=== PATIENT | female | born 1985 | race Caucasian/White ===

== ENCOUNTER 2022-05-19 09:07 | Outpatient (REF) | payer BC, OTHER, SELFPAY ==
[2022-05-19 11:24] LABS: HCG Quantitative < 2 mIU/mL; TSH reflex Free T4 1.07 uIU/mL (0.32-4.0)
[2022-05-19 18:07] LABS: CT PCR NOT DETECTED (Not Detect.); NG PCR NOT DETECTED (Not Detect.)
== END 2022-05-19 09:08 | disposition home or self-care (01) ==
LOC: HO.LAB 09:07
PROVIDERS: Visit Provider Obstetrics & Gynecology
DX: Z11.3 Encounter for screening for infections with a predominantly sexual mode of transmission (principal); N93.9 Abnormal uterine and vaginal bleeding, unspecified
CPT/HCPCS: 84443; 84702; 87491; 87591

== ENCOUNTER 2022-07-26 15:18 | Outpatient (REF) | payer BC, OTHER, SELFPAY ==
--- NOTE | ~2022-07-26 | US_ITS ---
EXAMINATION: US PELVIS CLINICAL INFORMATION: Abnormal uterine bleeding. 36 year old, LMP 07/09/22 COMPARISON: None TECHNIQUE: Ultrasound of the pelvis is performed using both transabdominal and transvaginal transducers along with Doppler. Transvaginal imaging is performed due to inadequate visualization transabdominally. FINDINGS: Uterus: The uterus is anteverted and measures 13.1 x 5.5 x 7.6 cm. The double wall endometrial thickness is 12 mm. Intrauterine device is centered within the endometrial canal. The uterus is smooth in contour and has normal myometrial echogenicity. No visible fibroid. Adnexa: Both ovaries are visualized. There is normal color flow to the adnexa. There is no ovarian torsion. There is no pelvic ascites or fluid collection. Right ovary measures 3.8 x 2.5 x 2.8 cm. Left ovary measures 2.4 x 1.7x 3.2 cm. US/US pelvic and transvaginal IMPRESSION: Intrauterine device is centered within the endometrial canal.
== END 2022-07-26 15:19 | disposition home or self-care (01) ==
LOC: HO.HMGCX 15:18
PROVIDERS: Visit Provider Obstetrics & Gynecology
DX: N93.9 Abnormal uterine and vaginal bleeding, unspecified (principal)
CPT/HCPCS: 76830; 76856

== ENCOUNTER → 2022-09-01 14:27 | Outpatient (BNVA) | payer BC, OTHER, SELFPAY | PROVIDERS: Visit Provider Obstetrics & Gynecology | DX: Z13.89 Encounter for screening for other disorder (principal) ==

== ENCOUNTER 2022-09-29 14:18 | Outpatient (REF) | payer BC, OTHER, SELFPAY | END 2022-09-29 14:19 | disposition home or self-care (01) | LOC: HO.LNP 14:18 | PROVIDERS: Visit Provider Obstetrics & Gynecology | DX: N93.9 Abnormal uterine and vaginal bleeding, unspecified (principal) | CPT/HCPCS: 58100; 88305 ==

== ENCOUNTER 2022-10-14 15:16 | Outpatient (REF) | payer BC, OTHER, SELFPAY ==
[2022-10-14 16:19] LABS: Hematocrit 40.7 % (37.0-47.0); Hemoglobin 13.4 g/dl (12.0-16.0); Mean Corpuscular HGB Conc 32.9 g/dl (31.0-35.0); Mean Corpuscular Hemoglobin 30.5 pg (27.0-33.0); Mean Corpuscular Volume 92.5 fL (80.0-98.0); Platelet Count 370 X10*3/uL (160-400); Red Cell Distribution Width 12.1 % (11.0-16.0); White Blood Count 10.2 X10*3/uL (4.8-10.8)
== END 2022-10-14 15:17 | disposition home or self-care (01) ==
LOC: HO.LAB 15:16
PROVIDERS: Visit Provider Obstetrics & Gynecology
DX: N93.9 Abnormal uterine and vaginal bleeding, unspecified (principal)
CPT/HCPCS: 36415; 85027

== ENCOUNTER 2023-04-14 13:18 | Outpatient (AMB) | payer BC, OTHER, SELFPAY ==
--- NOTE | 2023-04-14 13:22 | A.OFFVIS_ITS ---
Intake Vital Signs 04/14/23 13:26 Height 5 ft 4 in Weight 189 lb 9.561 oz BMI 32.5 BP 118/72 Intake Visit Reasons: STD Testing/45 mins per Renetta Intake Note: The patient agreed to use of a medical library assistant during this encounter. Scribed for JARRELL Ayala by Charo Cesar medical library assistant, on 04/14/2023 at 1:37 pm EST. Bereavement Program Coordinator Required: No Information Interpreted: non-clinical & clinical Mandarin Teacher: Mandarin Teacher Present (Adali HERNDON) Accompanied by: Self / Same As Patient Allergies No Known Allergies Allergy (Unverified 04/14/23 13:26) Is last menstrual period known: Yes Last menstrual period: 03/29/23 HPI HPI Comments History of Present Illness0 Details She is a premenopausal woman presenting for annual exam, STD testing due to vaginal discharge, vaginal cut after intimacy and has Hx of BV. Patient admits she tries to eat a healthy diet including Calcium and Vitamin D. She stays active with exercise. Currently sexually active. Uses Paragard for BC. Regular month menses lasting 7 days. Denies vaginal odor or urinary issues. STD screening and blood work offered; she accepts.? Denies family hx of colon cancer.? Last pap smear 2017. Last mammogram 03/31/23. 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 Sexual orientation: Straight/Heterosexual Gender identity: Female Female Reproductive History Menstrual Duration of menses: 6-7 days Date of last menstrual period: 03/29/23 control method: copper IUCD (Paragard; IUD strings visible 04/14/23) Physical Exam Vital Signs: Last Vital Signs BP 118/72 04/14/23 13:26 BMI result Body Mass Index 32.5 Const General: cooperative, healthy appearing, comfortable, no acute distress, well developed, alert and awake Orientation/consciousness: patient oriented x3 HEENT Head: Yes normal to inspection Eyes General: appearance normal, both eyes and all related structures Neck Neck: Yes normal visual inspection Thyroid: Thyroid normal Chest Chest palpation & inspection: normal inspection of the chest Breast/axilla inspection: normal inspection of the breasts (no puckering, dimpling, peau de orange, retraction, discharge, masses) Breast/axilla palpation: normal palpation of the breasts Resp Effort & Inspection: normal respiratory effort GI Inspection: Yes normal to inspection Palpation (GI): Soft to palpation (to palpation) Rectal Exam - Female: deferred Other: no lesions visualized. General: Yes bladder normal to palpation External Female Exam: normal external appearance and normal appearance of the urethra Speculum Exam - Vagina: normal appearance of the vagina, normal palpation and abnormal vaginal discharge white (scant) Speculum Exam - Cervix: normal appearance of the cervix, normal palpation and Other cervical findings present (IUD strings visible) Bimanual exam- vagina & uterus: normal bimanual exam, normal palpation, bladder normal to palpation and normal palpation Bimanual Exam- Adnexa, other: normal adnexae and no masses Skin General skin exam: no rashes or lesions noted Neuro General: patient oriented x3 Cognition (Neuro): normal cognition Extrem General: Yes normal to inspection Psych Attitude: cooperative Thought process: Normal thought process present Assessment & Plan Assessment & Plan (1) Vaginal discharge: Code(s): N89.8 - Other specified noninflammatory disorders of vagina Plan: BV testing and GC/CT panel today. STD blood work ordered. Await results and treat accordingly. (2) Encounter for well woman exam: Code(s): Z01.419 - Encounter for gynecological examination (general) (routine) without abnormal findings Plan: Discussed: Current recommendations for pap smears per ASCCP guidelines. Breast awareness and periodic self breast exams. Maintaining a healthy lifestyle including a well balanced diet and routine exercise. All of her questions and concerns were addressed to the best of my ability. RTO in one year for AG. Orders: Orders Hepatitis B Core Antibody Today Z20.2 - Contact with and (suspected) exposure to infections with a predominantly sexual mode of transmission Hepatitis C Antibody Today Z20.2 - Contact with and (suspected) exposure to infections with a predominantly sexual mode of transmission HIV Ab/Ag Today Z20.2 - Contact with and (suspected) exposure to infections with a predominantly sexual mode of transmission Syphilis Screen Today Z20.2 - Contact with and (suspected) exposure to infections with a predominantly sexual mode of transmission Bacterial Vaginosis Panel Today N93.9 - Abnormal uterine and vaginal bleeding, unspecified CT NG by PCR Today N93.9 - Abnormal uterine and vaginal bleeding, unspecified Pap Smear Today N93.9 - Abnormal uterine and vaginal bleeding, unspecified Coding Level of Care Code Est Pt Prev Care 18-39y(07470) Diagnoses Vaginal discharge N89.8 Encounter for well woman exam Z01.419
[2023-04-14 13:26] VITALS: BP 118/72; BMI 32.5
== END 2023-04-14 13:50 | disposition home or self-care (01) ==
PROVIDERS: Visit Provider Advanced Practice Midwife
DX: Z01.419 Encounter for gynecological examination (general) (routine) without abnormal findings (principal); N89.8 Other specified noninflammatory disorders of vagina
CPT/HCPCS: 99395

== ENCOUNTER 2023-04-14 13:18 | Outpatient (REF) | payer BC, OTHER, SELFPAY ==
[2023-04-14 18:56] LABS: CT PCR NOT DETECTED (Not Detect.); NG PCR NOT DETECTED (Not Detect.)
[2023-04-15 12:08] LABS: BV Int Neg Control Negative (Negative); BV Int Pos Control Positive (Positive)
[2023-04-19 18:49] LABS: HPV mRNA E6/E7 rflx Not Detected (Not Detected)
== END 2023-04-14 13:19 | disposition home or self-care (01) ==
LOC: HO.LNP 13:18
PROVIDERS: Visit Provider Advanced Practice Midwife
DX: Z01.419 Encounter for gynecological examination (general) (routine) without abnormal findings (principal); Z11.51 Encounter for screening for human papillomavirus (HPV); N89.8 Other specified noninflammatory disorders of vagina
CPT/HCPCS: 0353U; 87480; 87510; 87624; 87660; 88142

== ENCOUNTER 2024-02-08 08:07 | Outpatient (AMB) | payer BC, SELFPAY ==
[2024-02-08 08:21] VITALS: BP 102/62; BMI 29.1
--- NOTE | 2024-02-08 08:21 | MHC.OFFVIS ---
Vital Signs 02/08/24 08:21 Height 5 ft 2 in Weight 159 lb BMI 29.1 BP 102/62 Blood Pressure Location Lt radial Position Sitting Intake Visit Reasons: control consult (Wants paragard) Allergies No Known Allergies Allergy (Unverified 04/14/23 13:26) HPI Comments Details: Presenting to discuss different options of control. The patient had ParaGard IUD inserted in 05/2013 as interested in replacing it PFSH Family History Mother Diabetes HTN (hypertension) Hyperlipidemia Maternal Aunt Breast cancer Family/Other Ovarian cancer Social History Household Members: Children Housing: House Alcohol intake: current Alcohol intake frequency: holidays/special occasions only Patient Tobacco Use Status: Never used Tobacco service: No Current occupational status: employed Current occupation: [employer] Sexual orientation: Straight/Heterosexual Gender identity: Female Review of Systems Const All systems reviewed & are unremarkable except as noted in HPI and below Reports as per HPI and Reports no additional complaints GI Reports no additional complaints Reports no additional complaints Physical Exam Vital Signs: Last Vital Signs BP 102/62 02/08/24 08:21 BMI result Body Mass Index 29.1 Assessment & Plan Assessment & Plan (1) Family planning: Code(s): Z30.09 - Encounter for other general counseling and advice on contraception Category: Social Hx Plan: Discussed with the patient the different options of control including control pills/Nuvaring, DMPA, different types of IUD ?s, sterilization. All the pros, cons, risks and benefits of each were discussed with the patient. The patient decided to go ahead with an IUD, so a more detailed discussion was carried on including types (Progesterone, Copper), mechanism of action, risks (infection, uterine perforation, failure with ectopic , septic AB, dysmenorrhea with Paraguard, others) benefits (efficient contraceptive method, hypo menorrhea with Progesterone IUD, others) GC/CG will be taken during IUD insertion and the patient was asked to call day one of next cycle for Paraguard IUD insertion. Coding Level of Care Code Est Pt Level 3 (92136) Diagnoses Family planning Z30.09
== END 2024-02-08 09:32 | disposition home or self-care (01) ==
PROVIDERS: Visit Provider Obstetrics & Gynecology
DX: Z30.09 Encounter for other general counseling and advice on contraception (principal)
CPT/HCPCS: 99213

== ENCOUNTER → 2024-02-08 08:07 | Outpatient (BNVA) | payer BC, SELFPAY | PROVIDERS: Visit Provider Obstetrics & Gynecology ==

== ENCOUNTER 2024-03-21 12:06 | Outpatient (REF) | payer BC, SELFPAY ==
[2024-03-21 17:14] LABS: CT PCR NOT DETECTED (Not Detect.); NG PCR NOT DETECTED (Not Detect.)
== END 2024-03-21 12:07 | disposition home or self-care (01) ==
LOC: HO.LNP 12:06
PROVIDERS: Visit Provider Obstetrics & Gynecology
DX: Z30.433 Encounter for removal and reinsertion of intrauterine contraceptive device (principal); N93.9 Abnormal uterine and vaginal bleeding, unspecified
CPT/HCPCS: 58100; 58300; 58301; 81025; 87491; 87591; 88305; J7300

== ENCOUNTER 2024-03-21 12:06 | Outpatient (AMB) | payer BC, SELFPAY ==
[2024-03-21 12:20] VITALS: BP 110/66; BMI 29.0
--- NOTE | 2024-03-21 12:20 | MHC.OFFVIS ---
Vital Signs 03/21/24 12:20 Height 5 ft 2 in Weight 158 lb 11.725 oz BMI 29.0 BP 110/66 Intake Visit Reasons: paragard insertion Plastic Injection Mold Maker Required: No Information Interpreted: non-clinical & clinical Telecommunications Consultant: Telecommunications Consultant Present (Adali Jass HERNDON) Accompanied by: Self / Same As Patient Allergies No Known Allergies Allergy (Unverified 03/21/24 12:22) Is last menstrual period known: Yes Last menstrual period: 03/18/24 HPI Comments Details: Presenting for ParaGard removal and insertion complaining of spotting for few days after her menstrual cycle over the last few months. Last co testing was in 05/07 was negative PFSH Family History Mother Diabetes HTN (hypertension) Hyperlipidemia Maternal Aunt Breast cancer Family/Other Ovarian cancer Social History Household Members: Children Housing: House Alcohol intake: current Alcohol intake frequency: holidays/special occasions only Patient Tobacco Use Status: Never used Tobacco service: No Current occupational status: employed Current occupation: [employer] Sexual orientation: Straight/Heterosexual Gender identity: Female Female Reproductive History Menstrual Date of last menstrual period: 03/18/24 control method: copper IUCD Review of Systems Const All systems reviewed & are unremarkable except as noted in HPI and below Physical Exam Vital Signs: Last Vital Signs BP 110/66 03/21/24 12:20 BMI result Body Mass Index 29.0 General: Yes no CVA tenderness External Female Exam: normal external appearance and normal appearance of the urethra Speculum Exam - Vagina: normal appearance of the vagina, normal palpation, no lesions and no masses Speculum Exam - Cervix: normal appearance of the cervix, normal palpation, no lesions, no masses and nontender Bimanual exam- vagina & uterus: normal bimanual exam, normal palpation, uterine size normal, normal palpation, uterine shape normal, No Cervical tenderness present and non-tender Bimanual Exam- Adnexa, other: normal adnexae Back/Spine/Pelvis Back: no CVA tenderness Office Procedures Endometrial Biopsy Details: The patient was counseled regarding the indication and benefits of endometrial sampling to rule out endometrial pathology including not limited to endometrial hyperplasia or endometrial cancer and others; The alternatives (Either do nothing vs. hysteroscopy D&C) & the risks were discussed with the patient including but not limited: pain, uterine perforation, bleeding, infection, possible injury to bladder, bowel, ureter, possible need for blood transfusion with all its possible risks. The patient verbalized understanding all questions answered and signed consent. Urine test done in the office was negative The patient was placed into the dorsal lithotomy position; a speculum was inserted in the vagina. Using aseptic technique for the procedure, the cervix was cleansed with Betadine. The anterior lip of the cervix was grasped with a single tooth tenaculum. The uterus was sounded to 7 cm with a 4 mm Pipelle was used. Tissues samples were obtained and placed in formalin, in a patient labeled container and sent to the pathology department. At the end of the procedure, there was minimal bleeding noted The patient tolerated the procedure well and was discharged in good condition with the following instructions: Nothing in the vagina until the bleeding stops. No sex until the bleeding stops, to call if any of the following occurs: fever (>100.4), flu-like symptoms, abdominal pain, heavy bleeding, four smelling vaginal discharge. The patient was instructed to schedule a Follow up appointment in 2 weeks to discuss pathology results of the biopsy and treatment options. This note was generated with a voice recognition program. Some errors may have been overlooked during the review of this note. Sometimes these errors may affect the content or meaning of a given sentence. 49846-Zzmrzbmvmvh Biopsy IUD Insert/Removal Details Details: The patient is presenting for ParaGard IUD removal and IUD reinsertion. Her last menstrual period was within the last 5 days, Urine test was done in the office and was negative; All the contraindications were excluded. The following possible complications were discussed with the patient: Intrauterine , Ectopic , Sepsis, Pelvic Infection, Irregular Bleeding and Amenorrhea, Perforation, Expulsion, Ovarian Cysts, Breast Cancer. The following adverse effects were discussed with the patient: alteration of menstrual bleeding pattern, including: unscheduled uterine bleeding decreased uterine bleeding increased scheduled uterine bleeding female genital tract bleeding ,amenorrhea , genital discharge , vulvovaginitis , breast pain , benign ovarian cyst and associated complications , dysmenorrhea , Gastrointestinal disorders abdominal/pelvic pain, headache/migraine , back pain , acne , depression Alternative options were discussed with the patient including but not limited: control pills, patch, NuvaRing, Depo-medroxyprogesterone acetate, Nexplanon, copper IUD, sterilization, vasectomy, others The procedure was explained in detail to patient , at the end patient signed the informed consent obtained. Alternative options were discussed with the patient The patient signed the consent and agreed with the plan; all questions answered. Urine test was done in the office and was negative Preop dx: Requesting IUD removal and Reinsertion Op: ParaGard IUD removal and Mirena insertion Post op dx: same EBL= 10 cc Procedure: The patient was put in the dorsal lithotomy position a speculum was inserted in the vagina the IUD thread identified. Using a Cortney clamp the thread was grasped and the IUD pulled out with no complications. A no touch technique was used throughout the procedure. A speculum was placed into vagina and cervix was cleaned with betadine). A tenaculum was placed. A plastic sound was advanced through the external and internal os until it reached the fundus of the uterus, the depth was 8 cm. The sound was then withdrawn. The IUD was loaded in a sterile manner and advanced into position. The string was visualized and cut to 3 cm. Tenaculum site hemostatic. All instruments removed from vagina. Patient tolerated the procedure well. NO complications were noted. Patient was instructed to call for fever over 100.4, significant pain unrelieved by Motrin, IUD expulsion, heavy bleeding, or abnormal discharge. In addition, the following clinical considerations were discussed with the patient to call for removal: A stroke or heart attack ,Very severe or migraine headaches ,Unexplained fever ,Yellowing of the skin or whites of the eyes, as these may be signs of serious liver problems , or suspected , Pelvic pain or pain during sex ,HIV positive seroconversion in herself or her partner , Possible exposure to sexually transmitted infections Unusual vaginal discharge or genital sores , severe vaginal bleeding or bleeding that lasts a long time, or if she misses a menstrual period, Inability to feel Mirena's threads Counseled the patient that the IUD does not protect against STI's, recommended use of condoms for the first 7 days post insertion and explained to the patient that condoms are recommended for patients at risk for sexually transmitted infections. Follow up appointment made for 4 weeks following insertion. Date of removal in no more than five years for DUB treatment and 8 years for contraception from today?s date was d/w patient. This note was generated with a voice recognition program. Some errors may have been overlooked during the review of this note. Sometimes these errors may affect the content or meaning of a given sentence. 11637-DGO Insertion 90107-PAT Removal Procedure code (CPT) selection complete Office Meds ParaGard T 380A 380 square mm intrauterine device Performing Provider: Benjie Miles MD Performing Location: [facility] [place] [facility] [place] [facility] Documented (not given) by: Benjie Miles MD on 03/21/24 12:43 Dose Route Admin Location Dispensed Lot Number Expiration Date [facility] Dot Compliance Manager 1 device intrauterine ea Results AMB Test Urine AMB Test Urine Negative Last Edit by Adali Regan CMA on 03/21/24 12:28 Results Reviewed Results Reviewed: Laboratory Last Values Tst Clinic Negative 03/21/24 12:28 Assessment & Plan Assessment & Plan (1) Remove/insert IUD: Code(s): Z30.433 - Encounter for removal and reinsertion of intrauterine contraceptive device Category: Medical Plan: ParaGard IUD removed and reinserted (2) Abnormal uterine bleeding: Comment: With ParaGard IUD Code(s): N93.9 - Abnormal uterine and vaginal bleeding, unspecified Category: Medical Plan: GC and chlamydia taken CBC, TSH, prolactin, HCG, and pelvic ultrasound ordered. Discussed with the patient the different causes of abnormal bleeding including thyroid disorders, uterine and ovarian pathology, endometrial hyperplasia, carcinoma and other potential causes. Discussed with the patient the work up including CBC (to r/o anemia), TSH, prolactin, pelvic Ultrasound, endometrial biopsy to r/o endometrial pathology. EMB done, see procedure note. All questions answered and the patient verbalized understanding. Instructed the patient to schedule an follow-up in 2 weeks. Orders: Orders TSH reflex Free T4 Today N93.9 - Abnormal uterine and vaginal bleeding, unspecified AMB HCG Urine Test Today Z32.02 - Encounter for test, result negative AMB IUD Insertion/Removal - Patient Supply Today Z30.433 - Encounter for removal and reinsertion of intrauterine contraceptive device AMB Endometrial Biopsy Today N93.9 - Abnormal uterine and vaginal bleeding, unspecified Complete Blood Count no Diff Today N93.9 - Abnormal uterine and vaginal bleeding, unspecified Prolactin Today N93.9 - Abnormal uterine and vaginal bleeding, unspecified HCG Quantitative Today N93.9 - Abnormal uterine and vaginal bleeding, unspecified US pelvic and transvaginal Today N93.9 - Abnormal uterine and vaginal bleeding, unspecified Medications: New ParaGard T 380A (copper) 1 device intrauterine ONCE PRN 1 ea 0RF IUD removal and insertion NS Z30.433 - Encounter for removal and reinsertion of intrauterine contraceptive device Coding Level of Care Code Est Pt Level 3 (93938) Procedure Only Diagnoses Remove/insert IUD Z30.433 Abnormal uterine bleeding N93.9 CPT Codes Endometrial Biopsy - CPT: 60245-Hshfhnmynaz Biopsy ([id number]) Details - CPT: 02432-KPY Insertion ([id number]) Details - CPT: 86859-HTM Removal ([id number])
== END 2024-03-21 13:39 | disposition home or self-care (01) ==
PROVIDERS: Visit Provider Obstetrics & Gynecology
DX: N93.9 Abnormal uterine and vaginal bleeding, unspecified (principal); Z30.433 Encounter for removal and reinsertion of intrauterine contraceptive device; Z32.02 Encounter for pregnancy test, result negative
CPT/HCPCS: 58100; 58300; 58301; 99213

== ENCOUNTER 2024-03-23 16:04 | Outpatient (REF) | payer BC, SELFPAY ==
--- NOTE | ~2024-03-23 | US_ITS ---
EXAM: Pelvic Ultrasound CLINICAL INDICATION: Abnormal bleeding COMPARISON: Pelvic ultrasound July 26, 2022 TECHNIQUE: The pelvis was evaluated using transabdominal and transvaginal imaging. FINDINGS: The uterus measures 12.6 x 5.5 x 7.0 cm in longitudinal by AP by transverse dimension. The endometrial stripe is obscured by an IUD. IUD appears in proper position. The left ovary measures approximately 2.8 x 1.1 x 2.3 cm and is normal. The right ovary measures approximately 4.5 x 2.4 x 2.1 cm and contains a corpus luteum cyst measuring approximately 2 cm. There is no free fluid in the pelvis. US/US pelvic and transvaginal IMPRESSION: 1. IUD in proper position. 2. Small corpus luteum cyst of the right ovary. Electronically signed by: Danie Elena MD 04/12/2024 07:12 AM EDT
[2024-03-23 17:06] LABS: Hemoglobin 12.8 g/dl (12.0-16.0); Mean Corpuscular HGB Conc 33.7 g/dl (31.0-35.0); Mean Corpuscular Hemoglobin 30.8 pg (27.0-33.0); Mean Corpuscular Volume 91.3 fL (80.0-98.0); Mean Platelet Volume 9.2 fL (9.4-12.3); Platelet Count 323 X10*3/uL (160-400); Red Blood Count 4.16 X10*6/uL (4.20-5.50); Red Cell Distribution Width 12.4 % (11.0-16.0); White Blood Count 9.4 X10*3/uL (4.8-10.8)
[2024-03-23 18:55] LABS: HCG Quantitative < 2 mIU/mL; TSH reflex Free T4 1.84 uIU/mL (0.32-4.0)
[2024-03-24 09:03] LABS: Prolactin 25.4 ng/mL
== END 2024-03-23 16:05 | disposition home or self-care (01) ==
LOC: HO.US 16:04
PROVIDERS: Visit Provider Obstetrics & Gynecology
DX: N93.9 Abnormal uterine and vaginal bleeding, unspecified (principal)
CPT/HCPCS: 36415; 76830; 76856; 84146; 84443; 84702; 85027

== ENCOUNTER 2024-04-25 14:02 | Outpatient (AMB) | payer BC, SELFPAY ==
--- NOTE | 2024-04-25 14:09 | MHC.OFFVIS ---
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 Doing well with concerns: reports BV often wants to check on it today. She tries to eat healthy and stays active with exercise. Regular monthly menses with the ParaGard IUD, no heavy or prolonged patterns. Currently is sexually active. She denies vaginal itching and irritation, reports some increase in vaginal discharge. STI screening offered; she accepts, desires to have bled testing also. Denies family history of breast, ovarian No FH colon cancer. Last pap smear 2022, negative. 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 Sexual orientation: Straight/Heterosexual Gender identity: Female Female Reproductive History Menstrual Date of last menstrual period: 04/22/24 control method: copper IUCD (03/21/24 Paragard) Total pregnancies: 4 Full term: 3 Number of Living Children: 3 Ab spontaneous: 1 Date of last pap smear: 04/14/23 (neg pap and hpv) Review of Systems Const All systems reviewed & are unremarkable except as noted in HPI and below Reports as per HPI Eyes Reports no additional complaints ENT Reports no additional complaints Card Reports no additional complaints Resp Reports no additional complaints GI Reports as per HPI and Reports no additional complaints Reports as per HPI Musc Reports no additional complaints Skin/Breast Reports as per HPI Neuro Reports no additional complaints Psych Reports no additional complaints Endo Reports no additional complaints Kem/Lymph Reports no additional complaints Aller/Immun Reports no additional complaints Physical Exam Vital Signs: Last Vital Signs BP 120/80 04/25/24 14:11 BMI result Body Mass Index 42.6 Const General: cooperative, healthy appearing, no acute distress, well developed and alert Orientation/consciousness: patient oriented x3 HEENT Head: Yes normal to inspection Eyes General: appearance normal, both eyes and all related structures Neck Neck: Yes normal visual inspection Thyroid: Thyroid normal Chest Chest palpation & inspection: normal inspection of the chest and other (no puckering, dimpling, peau de orange, retraction, discharge, masses) Breast/axilla inspection: normal inspection of the breasts Breast/axilla palpation: normal palpation of the breasts Resp Effort & Inspection: normal respiratory effort GI Inspection: Yes normal to inspection Palpation (GI): Soft to palpation Rectal Exam - Female: deferred General: Yes bladder normal to palpation External Female Exam: normal external appearance and normal appearance of the urethra Speculum Exam - Vagina: normal appearance of the vagina, normal palpation and normal vaginal discharge Speculum Exam - Cervix: normal appearance of the cervix, normal palpation and Other cervical findings present (IUD strings at the os, no palpable tip) Bimanual exam- vagina & uterus: normal bimanual exam, normal palpation, uterine size normal, bladder normal to palpation, normal palpation and non-tender Bimanual Exam- Adnexa, other: no masses Skin General skin exam: no rashes or lesions noted Rashes: no rashes Neuro General: patient oriented x3 Cognition (Neuro): normal cognition Extrem General: Yes normal to inspection Psych Attitude: cooperative Thought process: Normal thought process present Assessment & Plan Assessment & Plan (1) Encounter for well woman exam with routine gynecological exam: Code(s): Z01.419 - Encounter for gynecological examination (general) (routine) without abnormal findings Category: Medical Plan Discussed: Current recommendations for pap smears per ASCCP guidelines. Breast awareness and periodic breast exams. Maintain a healthy lifestyle including a well balanced diet and routine exercise. Use condoms for STI and prevention. Blood work ordered. Advised to monitor bleeding patterns and report any heavy or prolonged. Use of probiotics including oral dosing for good health and vaginal/women's health concerns. Reviewed boric acid protocol and patient was able to take a photo copy from office sample. Patient verbalizes understanding and agrees to the plan of care. She was given opportunity to ask questions and all questions were answered to the best of my ability. RTO in one year for annual denitrator examination. This note is constructed using voice recognition software. While every effort has been made to ensure accuracy, navigation teacher errors may have been included. Orders: Orders Bacterial Vaginosis Panel Today N89.8 - Other specified noninflammatory disorders of vagina, Z20.2 - Contact with and (suspected) exposure to infections with a predominantly sexual mode of transmission Hepatitis C Antibody Reflex Today Z20.2 - Contact with and (suspected) exposure to infections with a predominantly sexual mode of transmission Hepatitis B Core Antibody Today Z20.2 - Contact with and (suspected) exposure to infections with a predominantly sexual mode of transmission Syphilis Screen Today Z20.2 - Contact with and (suspected) exposure to infections with a predominantly sexual mode of transmission HIV Ab/Ag Today Z20.2 - Contact with and (suspected) exposure to infections with a predominantly sexual mode of transmission Coding Level of Care Code Est Pt Prev Care 18-39y(65899) Diagnoses Encounter for well woman exam with routine gynecological exam Z01.419
[2024-04-25 14:11] VITALS: BP 120/80; BMI 42.6
== END 2024-04-25 14:51 | disposition home or self-care (01) ==
PROVIDERS: Visit Provider Advanced Practice Midwife
DX: Z01.419 Encounter for gynecological examination (general) (routine) without abnormal findings (principal)
CPT/HCPCS: 99395

== ENCOUNTER 2024-04-25 14:02 | Outpatient (REF) | payer BC, SELFPAY ==
[2024-04-26 09:26] LABS: Bacterial Vaginosis PCR POSITIVE (Negative); Candida Group PCR NOT DETECTED (Not Detect); Candida glab krusei PCR NOT DETECTED (Not Detect); Trichomonas vaginalis PCR NOT DETECTED (Not Detect)
== END 2024-04-25 14:03 | disposition home or self-care (01) ==
LOC: HO.LAB 14:02
PROVIDERS: Visit Provider Advanced Practice Midwife
DX: N89.8 Other specified noninflammatory disorders of vagina (principal); Z20.2 Contact with and (suspected) exposure to infections with a predominantly sexual mode of transmission
CPT/HCPCS: 0352U

== ENCOUNTER 2024-05-09 12:18 | Outpatient (AMB) | payer BC, SELFPAY ==
--- NOTE | 2024-05-09 12:21 | A.OFFVIS_ITS ---
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 The patient has no complaints periods are normal, not painful, and flow is normal. The patient is checking the IUD thread periodically. Pelvic ultrasound done on 03/23 showed the following: IMPRESSION: 1. IUD in proper position. 2. Small corpus luteum cyst of the right ovary. 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 Sexual orientation: Straight/Heterosexual Gender identity: Female Female Reproductive History Menstrual Date of last menstrual period: 04/24/24 Review of Systems Const All systems reviewed & are unremarkable except as noted in HPI and below Physical Exam Vital Signs: Last Vital Signs BP 118/84 05/09/24 12:24 General: Yes no CVA tenderness External Female Exam: normal external appearance and normal appearance of the urethra Speculum Exam - Vagina: normal appearance of the vagina, normal palpation, no lesions and no masses Speculum Exam - Cervix: normal appearance of the cervix, normal palpation, no lesions, no masses, nontender and Other cervical findings present (IUD string in place) Bimanual exam- vagina & uterus: normal bimanual exam, normal palpation, uterine size normal, normal palpation, uterine shape normal, No Cervical tenderness present and non-tender Bimanual Exam- Adnexa, other: normal adnexae Back/Spine/Pelvis Back: no CVA tenderness Results AMB Test Urine AMB Test Urine Negative Last Edit by KATRINA Hdz on 05/09/24 12:27 Results Reviewed Results Reviewed: Laboratory Last Values Tst Clinic Negative 05/09/24 12:26 Assessment & Plan Assessment & Plan (1) IUD check up: Code(s): Z30.431 - Encounter for routine checking of intrauterine contraceptive device Category: Medical Plan: UPT done in the office was negative. Discussed with the patient the finding on pelvic ultrasound and on physical exam, IUD string in place, the patient was reassured. Instructions given to patient to call in case of temperature above 100.4, severe cramping/pelvic pain, abnormal discharge or abnormal uterine bleeding or if she misses her menstrual cycle. Otherwise follow-up at her annual exam appointment. All questions answered, the patient verbalized understanding. Orders: Orders AMB HCG Urine Test Today Z32.02 - Encounter for test, result negative Coding Level of Care Code Est Pt Level 3 (87890) Diagnoses IUD check up Z30.431
[2024-05-09 12:24] VITALS: BP 118/84
== END 2024-05-09 13:02 | disposition home or self-care (01) ==
LOC: HO.HWS 12:19
PROVIDERS: Visit Provider Obstetrics & Gynecology
DX: Z32.02 Encounter for pregnancy test, result negative (principal); Z30.431 Encounter for routine checking of intrauterine contraceptive device
CPT/HCPCS: 99213

== ENCOUNTER 2024-05-09 12:18 | Outpatient (REF) | payer BC, SELFPAY ==
[2024-05-10 05:41] LABS: HBc Num1 0.08 S/CO (0.00-0.79); HIV AB/AG Nonreactive (Nonreactive); HIV Num 1 0.04 S/CO (0.00-0.99); Hepatitis B Core Antibody Nonreactive (Nonreactive); Syphilis Screen Nonreactive (Nonreactive); ~Hepatitis C Antibody Nonreactive (Nonreactive)
== END 2024-05-09 12:19 | disposition home or self-care (01) ==
LOC: HO.LAB 12:18
PROVIDERS: Absent Provider Advanced Practice Midwife; Visit Provider Obstetrics & Gynecology
DX: Z30.431 Encounter for routine checking of intrauterine contraceptive device (principal); Z20.2 Contact with and (suspected) exposure to infections with a predominantly sexual mode of transmission; Z32.02 Encounter for pregnancy test, result negative
CPT/HCPCS: 36415; 81025; 86704; 86780; 86803; 87389

== ENCOUNTER 2024-07-16 14:06 | Outpatient (REF) | payer BC, SELFPAY ==
[2024-07-16 17:13] LABS: Estimated Average Glucose 114 mg/dL; Hemoglobin A1C 130.2402 umol/L; Hemoglobin A1c % 5.6 % (<6.0); Total Hemoglobin (HGBA1C) 3473.3079 umol/L
[2024-07-16 17:38] LABS: Alanine Aminotransferase 16 U/L (0-31); Albumin Level 3.8 g/dL (3.5-5.0); Alkaline Phosphatase 64 U/L (39-117); Anion Gap 9 (12-20); Aspartate Amino Transferase 34 U/L (5-31); Bilirubin Total 0.4 mg/dL (0.0-1.0); Blood Urea Nitrogen 9 mg/dL (9-16); Calcium 9.1 mg/dL (8.4-10.2); Carbon Dioxide 24 mmol/L (22-29); Chloride 109 mmol/L (96-108); Estimated Glomerular Filt Rate > 60; Glucose Random 113 mg/dL (60-115); Potassium 3.6 mmol/L (3.3-5.1); Sodium 138 mmol/L (135-145); TSH reflex Free T4 2.01 uIU/mL (0.32-4.0)
== END 2024-07-16 14:07 | disposition home or self-care (01) ==
LOC: HO.HHCL 14:06
PROVIDERS: Visit Provider General Practice
DX: Z13.1 Encounter for screening for diabetes mellitus (principal); E66.3 Overweight
CPT/HCPCS: 36415; 80053; 83036; 84443

== ENCOUNTER 2025-05-07 14:36 | Outpatient (AMB) | payer BC, SELFPAY ==
--- NOTE | 2025-05-07 14:45 | A.OFFVIS_ITS ---
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 Chief Librarian Branch: Chief Librarian Branch Present (CHAD Hua) Accompanied by: Self / Same As Patient Allergies No Known Allergies Allergy (Verified 05/07/25 14:51) Is last menstrual period known: Yes Last menstrual period: 04/17/25 Post menopausal: No Patient : No HPI Comments Details: Patient is a premenopausal woman presenting for annual examination. Land Commissioner concerns: none. Regular monthly menses w/ParaGard. Currently is sexually active. She denies vaginal itching or irritation. STI screening offered; she declines. She tries to eat healthy and stays active with exercise. Family history of breast and ovarian cancer. Last pap smear 2022, negative. 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 Gender identity: Female Female Reproductive History Menstrual Age of Menarche: 12 Duration of menses: 3-5 days Date of last menstrual period: 04/17/25 control method: copper IUCD (Paraguard) Total pregnancies: 4 Full term: 3 Ab spontaneous: 1 Date of last pap smear: 04/15/23 (negative pap smear, negative hpv) Review of Systems Const All systems reviewed & are unremarkable except as noted in HPI and below Reports as per HPI Eyes Reports no additional complaints ENT Reports no additional complaints Card Reports no additional complaints Resp Reports no additional complaints GI Reports as per HPI and Reports no additional complaints Reports as per HPI Musc Reports no additional complaints Skin/Breast Reports as per HPI Neuro Reports no additional complaints Psych Reports no additional complaints Endo Reports no additional complaints Kem/Lymph Reports no additional complaints Aller/Immun Reports no additional complaints Physical Exam Vital Signs: Last Vital Signs BP 118/72 05/07/25 14:50 BMI result Body Mass Index 43.0 Const General: cooperative, healthy appearing, no acute distress, well developed and alert Orientation/consciousness: patient oriented x3 HEENT Head: Yes normal to inspection Eyes General: appearance normal, both eyes and all related structures Neck Neck: Yes normal visual inspection Thyroid: Thyroid normal Chest Chest palpation & inspection: normal inspection of the chest and other (no puckering, dimpling, peau de orange, retraction, discharge, masses) Breast/axilla inspection: normal inspection of the breasts Breast/axilla palpation: normal palpation of the breasts Resp Effort & Inspection: normal respiratory effort GI Inspection: Yes normal to inspection Palpation (GI): Soft to palpation Rectal Exam - Female: deferred General: Yes bladder normal to palpation External Female Exam: normal external appearance and normal appearance of the urethra Speculum Exam - Vagina: normal appearance of the vagina, normal palpation and normal vaginal discharge Speculum Exam - Cervix: normal appearance of the cervix, normal palpation and Other cervical findings present (IUD strings at the os) Bimanual exam- vagina & uterus: normal bimanual exam, normal palpation, uterine size normal, bladder normal to palpation, normal palpation and non-tender Bimanual Exam- Adnexa, other: no masses Skin General skin exam: no rashes or lesions noted Rashes: no rashes Neuro General: patient oriented x3 Cognition (Neuro): normal cognition Extrem General: Yes normal to inspection Psych Attitude: cooperative Thought process: Normal thought process present Assessment & Plan Assessment & Plan (1) Encounter for well woman exam with routine gynecological exam: Code(s): Z01.419 - Encounter for gynecological examination (general) (routine) without abnormal findings Category: Medical Plan Discussed: Current recommendations for pap smears per ASCCP guidelines. Breast awareness and periodic breast exams. Maintain a healthy lifestyle including a well balanced diet and routine exercise. Patient verbalizes understanding and agrees to the plan of care. She was given opportunity to ask questions and all questions were answered to the best of my ability. RTO in one year for annual gearcase assembler examination. This note is constructed using voice recognition software. While every effort has been made to ensure accuracy, commercial ocean clammer errors may have been included. Coding Level of Care Code Est Pt Prev Care 18-39y(93103) Diagnoses Encounter for well woman exam with routine gynecological exam Z01.419
[2025-05-07 14:50] VITALS: BP 118/72; BMI 43.0
--- OUTSIDE RECORDS SUMMARY | 2025-05-07 17:46 | XMS_ITS | Encounter Summary ---
Author Organization [email or web address] Address [address] [place] [address] Care Team Providers Care Office Admin Name Role Phone Mae Mccall MD Primary Care Provider [phone] Reason for Visit * Reason Onset Date Comments Appointment Request 05/09/2024 Encounter Details Date Type Department Care Team (Late st Contact Info) Description 05/09/2024 Telephone [facility] [address] [place] [address] [phone] Mae Mccall MD [address] [place] [address] [phone] Appointment Request Social History Tobacco Use Types Packs/Day Years Used Date Smoking Tobacco: Never Assessed Comments Unknown Sex and Gender Information Value Date Recorded Sex Assigned at Female 06/14/2022 10:19 AM EDT Legal Sex Female 10:19 AM EDT Gender Identity Female 06/14/2022 10:19 AM EDT Sexual Orientation Straight 06/14/2022 10 :19 AM EDT documented as of this encounter Miscellaneous Notes * Telephone Encounter - Kale Shah - 05/09/2024 1:19 PM EDT Tc from pt hasn't been since 2021 and is requesting a PE or routine OV. Pt stated no immediate concerns. Please contact pt at [phone]. documented in this encounter Plan of Treatment Upcoming Encounters Date Type Department Care Team (Late st Contact Info) Description 06/17/2025 3:45 PM EST Office Visit [facility] [address] [place] [address] [phone] Mae Mccall MD [address] [place] [address] documented as of this encounter Visit Diagnoses Not on filedocumented in this encounter Care Teams Office Admin Relationship Specialty Start Date End Date Mae Mccall MD [address] [place] [address] PCP - General Family Medicine 04/08/22 documented as of this encounter
--- OUTSIDE RECORDS SUMMARY | 2025-05-07 17:46 | XMS_ITS | Clinical Summary ---
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 90 tablet 07/16/2024 Active copper (Paragard) IUD Activ e Active Problems Problem Noted Date Diagnosed Date Class 2 obesity with body ma ss index (BMI) of 39.0 to 39.9 in adult 07/20/2024 Left foot pain 07/20/2024 Elevated blood-pressure read ing without diagnosis of hypertension 03/21/2021 Encounters Date Type Department Care Team Description 03/19/2025 Telephone [facility] [address] [place] [phone] Mae Mccall MD May recall from Last 3 Months Immunizations Immunization Administration Dates Next Due DTaP 09/07/2013,05/03/2012 Hep B, adult 07/28/2021,06/02/2021,04/06/2021 Influenza, IIV3, injectable 11/27/2014 Tdap 04/06/2021 Social History Tobacco Use Types Packs/Day Years Used Date Smoking Tobacco: Never Smokeless Tobacco: Never Tobacco Cessation:Counseling Given: Not Answered Alcohol Use Standard Drinks/Week Comments Yes 0 (1 standard drink = 0.6 oz pur e alcohol) oca Comments No Sex and Gender Information Value Date Recorded Sex Assigned at Female 06/14/2022 10:19 AM EDT Legal Sex Female 10:19 AM EDT Gender Identity Female 06/14/2022 10:19 AM EDT Sexual Orientation Straight 06/14/2022 10 :19 AM EDT Last Filed Vital Signs Vital Sign Reading Time Taken Comments Blood Pressure 134/91 07/16/2024 1:38 PM EST Pulse 90 07/16/2024 1:38 PM EST Temperature 35.8 C (96.4 F) 07/16/2024 1:38 PM EST Respiratory Rate 16 07/16/2024 1:38 PM EST Oxygen Saturation 99% 07/16/2024 1:38 PM EST Inhaled Oxygen Concentration - - Weight 105 kg (232 lb 4 oz) 07/16/2024 1:[address] Height 161.3 cm (5' 3.5 ) 07/16/2024 1:38 PM EST Body Mass Index 40.5 07/16/2024 1:38 PM EST Plan of Treatment Upcoming Encounters Date Type Department Care Team (Late st Contact Info) Description 06/17/2025 3:45 PM EST Office Visit [facility] [address] [place] [address] Mae Mccall MD [address] [place] [address] Health Maintenance Due Date Last Done Comments Depression Screening 1987 SDOH Screening 1987 Disability Screening 1987 Alcohol/Substance Use Screening 1999 HPV Vaccines (1 - 3-dose series) 2002 COVID-19 Vaccine ( - 2023-2 5 season) 2025 Influenza Vaccine (#1) 2025 11/27/2014 Family Planning (PISQ) 07/20/2025 07/20/2024 Tobacco Screening 07/20/2025 07/20/2024 Lipid Panel 03/27/2026 03/27/2021 Cervical Cancer Screening 06/02/2026 HPV/Cotest 06/02/2026 06/02/2021 Pap Smear 06/02/2026 06/02/2021 DTaP/Tdap/Td Vaccines (4 - T d or Tdap) 04/06/2031 04/06/2021, 09/07/2013, 05/03/2012 Zoster Vaccines (1 of 2) 2037 RSV Patients and Patients Aged 60 years or older (1 - 1-dose 75+ series) 2062 HIV Screening Completed 03/27/2021 Hepatitis C Screening Completed 03/27/2021 Hepatitis B Vaccines Completed 07/28/2021, 06/02/2021, 04/06/2021 HIB Vaccines Aged Out No longer eligi ble based on patient's age to complete this topic Hepatitis A Vaccines Aged Out No long er eligible based on patient's age to complete this topic IPV Vaccines Aged Out No longer eligi ble based on patient's age to complete this topic Meningococcal B Vaccine Aged Out No l onger eligible based on patient's age to complete this topic Meningococcal Vaccine Aged Out No joan belkis eligible based on patient's age to complete this topic Pneumococcal Vaccine: Pediatrics (0 to 5 Years) and At-Risk Patients (6 to 49) Years Aged Out No longer eligible b ased on patient's age to complete this topic RSV under 20 months Aged Out No longe r eligible based on patient's age to complete this topic Rotavirus Vaccines Aged Out No longer eligible based on patient's age to complete this topic Procedures Procedure Name Priority Date/Time Associated Diagnosis Comments HPV MRNA E6/E7 Routine 06/02/2021 10:20 AM EDT THINPREP PAP Routine 06/02/2021 10:20 AM EDT ZZZ HISTORICAL HEPATITIS C AB W/REFL TO HCV RNA, QN, PCR Routine 03/27/2021 8:32 AM EDT HIV 1/2 ANTIGEN/ANTIBODY, FOURTH GENERATION W/RFL Routine 03/27/2021 8:32 AM EDT LIPID PANEL, STANDARD Routine 03/27/2021 8:32 AM EDT from Last 3 Months or Most Recently Relevant to Health Maintenance Results * THINPREP PAP (06/02/2021 10:20 AM EDT) Clinical Information: None given [facility] COMMENT SEE COMMENT [facility] Comment: EXPLANATORY NOTE: The Pap is a screening test for cervical cancer. It is not a diagnostic test and is subject to false negative and false positive results. It is most reliable when a satisfactory sample, regularly obtained, is submitted with relevant clinical findings and history, and when the Pap result is evaluated along with historic and current clinical information. Gate Guard : SEE COMMENT [facility] Comment: GSG, CT(ASCP) CT screening location: [place] [address] Interpretation/R esult: Negative for intraepithelial lesion or malignancy. [facility] LMP: NONE GIVEN [facility] Prev. BX: NONE [facility]IV[facility] Prev. PAP: NONE GIVEN [facility] SOURCE: None given [facility] Statement Of Adequacy: SEE COMMENT [facility] Comment: Satisfactory for evaluation. Endocervical/transformation zone component present. 06/02/2021 10:2 0 AM EDT Nedra Ortiz NP LAB PATHOLOGY ORDERABLES Final Result Performing Organization Address [facility] de Phone Number [facility] [address] [place] [address] * HPV mRNA E6/E7 (06/02/2021 10:20 AM EDT) HPV nRNA E6/E7 Not Detected Not Detected [facility] Comment: Methodology: Corporate Strategist-Mediated Amplification This assay detects E6/E7 viral messenger RNA (mRNA) from 14 high-risk HPV types (16,18,31,33,35,39,45,51,52,56,58,59,66,68). The analytical performance characteristics of this assay have been determined by [employer]. The modifications have not been cleared or approved by the FDA. This assay has been validated pursuant to the CLIA regulations and is used for clinical purposes. For additional information, please refer to http://education.Capsule.fm.[employer]/faq/YWN228f4 (This link if provided for information/ educational purposes only.) 06/02/2021 10:2 0 AM EDT Nedra Ortiz NP LAB BLOOD ORDERABLES Final Resu lt Performing Organization Address [facility] de Phone Number [facility] [address] [place] [address], * HEPATITIS C AB W/REFL TO HCV RNA, QN, PCR (03/27/2021 8:32 AM EDT) HEPATITIS C ANTIBODY NON-REACT PIERCE NON-REACT PIERCE [facility] INDEX 0.02 <1.00 [facility] Comment: HCV antibody was non-reactive. There is no laboratory evidence of HCV infection. In most cases, no further action is required. However, if recent HCV exposure is suspected, a test for HCV RNA (test code 71466) is suggested. For additional information please refer to http://linkedFA.ROCKETHOME/faq/TWS65i6 (This link is being provided for informational/ educational purposes only.) 03/27/2021 8:32 AM EDT Nedra Ortiz NP HISTORICAL/NON ORDERABLE LABS F inal Result [facility] [address] [place] [address], * HIV 1/2 ANTIGEN/ANTIBODY,FOURTH GENERATION W/RFL (03/27/2021 8:32 AM EDT) HIV-1/2 ANTIGEN AND ANTIBODIES, 4TH GENERATION W/ REFLEX NON-REACT PIERCE NON-REACT PIERCE [facility] Comment: HIV-1 antigen and HIV-1/HIV-2 antibodies were not detected. There is no laboratory evidence of HIV infection. PLEASE NOTE: This information has been disclosed to you from records whose confidentiality may be protected by state law. If your state requires such protection, then the state law prohibits you from making any further disclosure of the information without the specific written consent of the person to whom it pertains, or as otherwise permitted by law. A general authorization for the release of medical or other information is NOT sufficient for this purpose. For additional information please refer to http://linkedFA.ROCKETHOME/faq/BLT055 (This link is being provided for informational/ educational purposes only.) The performance of this assay has not been clinically validated in patients less than 2 years old. 03/27/2021 8:32 AM EDT Nedra Ortiz [employer] LAB BLOOD ORDERABLES Final Resu lt Performing Organization Address [facility]/ZIP Co de Phone Number [facility] [address] * (ABNORMAL) LIPID PANEL, STANDARD (03/27/2021 8:32 AM EDT) Chol/HDLC Ratio 4.5 <5.0 (calc) [facility] Cholesterol, Total 179 <200 mg/dL [facility] HDL Cholesterol 40(L) > OR = 50 mg/dL [facility] LDL Cholesterol 105(H) mg/dL (calc) [facility] Comment: Reference range: <100 Desirable range <100 mg/dL for primary prevention; <70 mg/dL for patients with CHD or diabetic patients with > or = 2 CHD risk factors. LDL-C is now calculated using the Jonathon-Gonzalez calculation, which is a validated novel method providing better accuracy than the Friedewald equation in the estimation of LDL-C. Jonathon SS et al. TOMMY. 2013;310(19): 8237-3087 (http://education.[employer]/faq/ITE251) Non-HDL Cholesterol 139(H) <130 mg/dL (calc) [facility] Comment: For patients with diabetes plus 1 major ASCVD risk factor, treating to a non-HDL-C goal of <100 mg/dL (LDL-C of <70 mg/dL) is considered a therapeutic option. Triglycerides 222(H) <150 mg/dL [facility] Comment: If a non-fasting specimen was collected, consider repeat triglyceride testing on a fasting specimen if clinically indicated. Brenton et al. J. of Clin. Lipidol. 2015;9:129-169. 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
== END 2025-05-07 15:19 | disposition home or self-care (01) ==
LOC: HO.HWS 14:36
PROVIDERS: Visit Provider Advanced Practice Midwife
DX: Z01.419 Encounter for gynecological examination (general) (routine) without abnormal findings (principal)
CPT/HCPCS: 99395; 99459